=== PATIENT | female | born 1995 | race Caucasian/White ===

== ENCOUNTER 2023-08-15 01:04 | Emergency (ER) | payer BC, SELFPAY ==
--- NOTE | 2023-08-15 01:08 | XRR_ITS ---
PROCEDURE INFORMATION: Exam: XR Chest Exam date and time: 08/15/2023 1:11 AM Age: 27 years old Clinical indication: Chest pressure; Patient HX: C/O chest pain; Additional info: Cp TECHNIQUE: Imaging protocol: Radiologic exam of the chest. Views: 1 view. COMPARISON: No relevant prior studies available. FINDINGS: Lungs: Unremarkable. No consolidation. Pleural spaces: Unremarkable. No pleural effusion. No pneumothorax. Heart/Mediastinum: Unremarkable. No cardiomegaly. Bones/joints: Unremarkable. XR/XR chest 1V portable [id number] IMPRESSION: No acute findings.
--- NOTE | 2023-08-15 01:09 | ECG_ITS ---
[facility] Test Date: 2023-08-15 Pat Name: Sean Crenshaw Department: Room: Gender: Female Renderer: : 1995 Requested By: Marcelino Azul Order Number: [id number] Rafael MD: Giuseppe Hernandez M.D. Measurements Intervals [place] Rate: 95 P: 56 DC: 153 QRS: 75 QRSD: 90 T: -34 QT: 378 QTc: 477 Interpretive Statements SINUS RHYTHM MODERATE T-WAVE ABNORMALITY, CONSIDER INFERIOR ISCHEMIA [-0.1+ mV T-WAVE IN II/aVF] No previous ECG available for comparison Electronically Signed On 08-15-2023 9:10:20 STUNNER ANIMAL by Giuspepe Hernandez M.D. [id number]
[2023-08-15 01:20] VITALS: BP 135/78; PULSE 100; RESP 20; TEMP 36.1; O2SAT 100
[2023-08-15 01:27] LABS: Basophils % 0.2 %; Eosinophils # 0.1 10^3/uL (0.0-0.8); Eosinophils % 0.5 %; Lymphocytes # 0.8 10^3/uL (0.8-4.8); Lymphocytes % 7.7 %; Mean Corpuscular HGB Conc 31.6 g/dL (30-55); Mean Corpuscular Hemoglobin 24.6 pg (27-33); Mean Corpuscular Volume 77.9 fl (85-98); Mean Platelet Volume 10.9 fL (7.4-10.4); Monocytes # 0.8 10^3/uL (0.2-0.9); Neutrophils # 9.04 10^3/uL (1.8-7.7); Neutrophils % 84.1 %; Nucleated Red Blood Cells % 0 %; Platelet Count 223 10^3/cmm (157-399); Red Blood Count 4.75 10^6/uL (3.85-5.65); Red Cell Distribution Width 15.8 % (12.1-15.1); White Blood Count 10.74 10^3/uL (3.29-11.43)
[2023-08-15 01:44] LABS: HCG, Serum Qual Negative (Negative)
[2023-08-15 01:45] LABS: Troponin(5th) Baseline < 6 ng/L (0-10)
[2023-08-15 01:58] LABS: Alanine Aminotransferase 47 U/L (0-33); Albumin Level 4.3 g/dL (3.5-5.2); Alkaline Phosphatase 84 U/L (35-105); Aspartate Amino Transferase 82 U/L (0-32); Blood Urea Nitrogen 13 mg/dL (6-20); Calcium 8.7 mg/dL (8.5-10.5); Carbon Dioxide 17 mmol/L (22-29); Chloride 105 mmol/L (98-107); Creatinine Clr Calc Pharmacy 109.7115; Globulin 2.3 g/dL (1.3-4.6); Glomerular Filtration Rate 87.4 mL/min (90-130); Glucose 165 mg/dL (65-115); Lipase 24 U/L (13-60); NT Pro B Type Natriuretic Pept < 36 pg/mL (0-125); Osmolality Calculated 286 mOsm/kg (285-295); Sodium 136 mmol/L (136-145); Total Bilirubin 0.6 mg/dL (0.15-1.2); Total Protein 6.6 g/dL (6.6-8.7)
[2023-08-15 02:00] VITALS: BP 113/73; PULSE 95; RESP 20; O2SAT 100
[2023-08-15] MEDS: potassium chloride oral liq 20 mEq/15 mL UDC 40 MEQ PO (02:16)
[2023-08-15] MEDS: sodium chloride 0.9% 1,000 ML 999 ML IV ×2 (02:18→03:20)
--- NOTE | 2023-08-15 02:31 | CTR_ITS ---
PROCEDURE INFORMATION: Exam: CT Abdomen And Pelvis With Contrast Exam date and time: 08/15/2023 2:50 AM Age: 27 years old Clinical indication: Nausea and vomiting; Abdominal pain; Prior surgery; Surgery date: 6+ months; Surgery type: Gb. Iud; Patient HX: Epigastric pain with n/v; Additional info: Epigastric pain, vomiting TECHNIQUE: Imaging protocol: Computed tomography of the abdomen and pelvis with contrast. Radiation optimization: All CT scans at this facility use at least one of these dose optimization techniques: automated exposure control; mA and/or kV adjustment per patient size (includes targeted exams where dose is matched to clinical indication); or iterative reconstruction. Contrast material: OMNI 350; Contrast volume: 100 ml; Contrast route: INTRAVENOUS (IV); REPORTING DATA: Count of CT and Cardiac NM exams in prior 12 months: This patient has received 0 known CTs and 0 known cardiac nuclear medicine studies in the 12 months prior to the current study. COMPARISON: CR (CHEST, ) 08/15/2023 1:11 AM RADIATION DOSE METRICS: Total DLP (mGy-cm): 374.26 FINDINGS: Liver: Normal. No mass. Gallbladder and bile ducts: Surgical clips are noted in the gallbladder fossa compatible with a prior cholecystectomy. Pancreas: Normal. No ductal dilation. Spleen: Normal. No splenomegaly. Adrenal glands: Normal. No mass. Kidneys and ureters: The kidneys enhance symmetrically and there is no hydronephrosis. Stomach and bowel: There is moderate stool noted in the proximal half of the colon. Scattered diverticular disease is noted. Appendix: No evidence of appendicitis. Intraperitoneal space: Unremarkable. No free air. No significant fluid collection. Vasculature: Unremarkable. No abdominal aortic aneurysm. Lymph nodes: Unremarkable. No enlarged lymph nodes. Urinary bladder: Unremarkable as visualized. Reproductive: An intrauterine device is present. Bones/joints: Unremarkable. No acute fracture. Soft tissues: Unremarkable. CT/CT abdomen pelvis w con* [id number] IMPRESSION: Right-sided constipation. Diverticulosis.
[2023-08-15] MEDS: iohexol 350 mg/mL 500 mL Btl (per mL) IV (02:51)
--- NOTE | 2023-08-15 02:55 | ED_ITS ---
HPI - Abdominal Pain 2 General: Chief Complaint: Abdominal Pain Stated Complaint: Chest pain Time Seen by Provider: 08/15/23 01:07 History of Present Illness: 27-year-old female presenting with epigastric pain radiating to her back. She notes that she has a history of IBS, and has had diarrhea today. She ended up taking Imodium, due to the severity of the diarrhea. The Imodium has not seem to help much. She began to get intense epigastric/lower chest pain late last night, that radiated into her back. She has vomited a couple of times. No blood. No blood in the stool. No fever. In the ambulance, she received some pain medication which seemed to help to some degree. Associated Symptoms: Reports diarrhea, nausea and vomiting; Denies chills, fever(s) and hematochezia Review of Systems 2 Const: Denies: fever(s), chills or body aches Eyes: Denies: change in vision Card: Reports: chest pain; Denies: palpitations Resp: Denies: dyspnea, productive cough, non-productive cough or wheezing GI: Reports: abdominal pain, nausea, vomiting and diarrhea; Denies: hematochezia : Denies: difficulty voiding Skin/Breast: Denies: rash Neuro: Denies: headache(s), weakness in extremities or confusion PFSH ED 2 PFSH: Medical History Psychiatric care Physical Exam 2 Const: COMMON NORMALS: no acute distress GENERAL APPEARANCE: cooperative; not ill appearing and not frail appearing HENMT: COMMON NORMALS: normocephalic, atraumatic and Normal external nose present HEAD & SCALP: normocephalic and atraumatic FACE & SINUS: normal facial exam and face symmetric NOSE: Normal external nose present Eye: COMMON NORMALS: Equal, round and reactive pupils present and EOMs intact bilaterally PUPIL: Yes Equal, round and reactive pupils present Neck/C-Spine: GENERAL: Yes trachea midline Chest: CHEST: Yes Symmetrical chest wall rise Resp: COMMON NORMALS: normal respiratory effort, No retractions, No use of accessory muscles and clear to auscultation bilaterally AUSCULTATION: clear to auscultation bilaterally Cardio: COMMON NORMALS: regular rate and regular rhythm RATE: regular rate RHYTHM: regular rhythm GI: COMMON NORMALS: Normal to inspection, nondistended, normoactive bowel sounds present Extremity: COMMON NORMALS: no pedal edema Neuro: CONNER COMA SCALE: document GCS findings Conner coma scale eye opening: Spontaneous [place] coma scale verbal response: Orientated Conner coma scale motor response: Obey commands Conner coma scale total score: 15 S ENSORY EXAM: Yes extremities (intact) Psych: COMMON NORMALS: speech normal SPEECH: Yes normal speech Skin: COMMON NORMALS: no rashes or lesions noted GENERAL SKIN EXAM: no rashes or lesions noted Course 2 Vital Signs: Vital signs: Vital Signs Temperature 97 F L 08/15/23 01:20 Pulse Rate 105 H 08/15/23 03:48 Respiratory Rate 18 08/15/23 03:48 Blood Pressure 113/73 08/15/23 03:48 Pulse Oximetry 100 08/15/23 03:48 Oxygen Delivery Me thod Room Air 08/15/23 01:20 MDM - Abdominal Pain Medical Decision Making EKG reveals a sinus rhythm with normal axis and intervals. Rate is 95. There are no acute ST wave changes. Chest x-ray is negative. Vitals are stable. Her potassium is 3.0. Bicarbonate is 17. Blood sugar is 165. She is receiving a 2 L bolus. She has received oral potassium repletion. Lipase is normal. Liver enzymes are mildly elevated, but she has a history of Johnson. D-dimer is 0.3. CT of the abdomen pelvis is pending. CT is nonacute. Differential includes small ulcer, reflux and/or esophageal spasm, hypokalemia as a cause of chest discomfort, anxiety. Patient has a history of reflux. She has been off her omeprazole. Will represcribe along with Carafate. Outpatient follow-up. Return for worsening symptoms despite treatment. She will need a repeat potassium. Lab Data 08/15/23 01:22 08/15/23 01:22 Labs/Radiology: Radiology Impressions Chest X-Ray 08/15/23 01:08 IMPRESSION: No acute findings. Abdomen/Pelvis CT 08/15/23 02:31 IMPRESSION: Right-sided constipation. Diverticulosis. Laboratory Results WBC 10.74 10^3/uL (3.29-11.43) 08/15/23 01:22 RBC 4.75 10^6/uL (3.85-5.65) 08/15/23 01:22 Hgb 11.70 g/dL (11.27-16.99) 08/15/23 01:22 Hct 37.0 % (36-47) 08/15/23 01:22 MCV 77.9 fl (85-98) L 08/15/23 01:22 MCH 24.6 pg (27-33) L 08/15/23 01:22 MCHC 31.6 g/dL (30-55) 08/15/23 01:22 RDW 15.8 % (12.1-15.1) H 08/15/23 01:22 Plt Count 223 10^3/cmm (157-399) 08/15/23 01:22 MPV 10.9 fL (7.4-10.4) H 08/15/23 01:22 Neut % (Auto) 84.1 % 08/15/23 01:22 Lymph % (Auto) 7.7 % 08/15/23 01:22 [place] % (Auto) 7.0 % 08/15/23 01:22 Eos % (Auto) 0.5 % 08/15/23 01:22 Baso % (Auto) 0.2 % 08/15/23 01:22 Neut # (Auto) 9.04 10^3/uL (1.8-7.7) H 08/15/23 01:22 Lymph # (Auto) 0.8 10^3/uL (0.8-4.8) 08/15/23 01:22 [place] # (Auto) 0.8 10^3/uL (0.2-0.9) 08/15/23 01:22 Eos # (Auto) 0.1 10^3/uL (0.0-0.8) 08/15/23 01:22 Baso # (Auto) 0.0 10^3/uL (0.0-0.1) 08/15/23 01:22 Nucleated RBC % (auto) 0 % 08/15/23 01:22 Nucleated RBCs # 0.0 /100WBC 08/15/23 01:22 D-Dimer 0.30 ug/mLFEU (0-0.59) 08/15/23 01:22 Sodium 136 mmol/L (136-145) 08/15/23 01:22 Potassium 3.0 mmol/L (3.5-5.1) L 08/15/23 01:22 Chloride 105 mmol/L (98-107) 08/15/23 01:22 Carbon Dioxide 17 mmol/L (22-29) L 08/15/23 01:22 Anion Gap 17.0 (5-19) 08/15/23 01:22 BUN 13 mg/dL (6-20) 08/15/23 01:22 Creatinine 0.8 mg/dL (0.5-0.9) 08/15/23 01:22 GFR Calculation 87.4 mL/min (90-130) L 08/15/23 01:22 Glucose 165 mg/dL (65-115) H 08/15/23 01:22 Calculated Osmolality 286 mOsm/kg (285-295) 08/15/23 01:22 Calcium 8.7 mg/dL (8.5-10.5) 08/15/23 01:22 Total Bilirubin 0.6 mg/dL (0.15-1.2) 08/15/23 01:22 AST 82 U/L (0-32) H 08/15/23 01:22 ALT 47 U/L (0-33) H 08/15/23 01:22 Alkaline Phosphatase 84 U/L (35-105) 08/15/23 01:22 Troponin T Baseline < 6 ng/L (0-10) 08/15/23 01:22 NT-Pro-B Natriuret Pep < 36 pg/mL (0-125) 08/15/23 01:22 Total Protein 6.6 g/dL (6.6-8.7) 08/15/23 01:22 Albumin 4.3 g/dL (3.5-5.2) 08/15/23 01:22 Globulin 2.3 g/dL (1.3-4.6) 08/15/23 01:22 Lipase 24 U/L (13-60) 08/15/23 01:22 HCG, Qual Negative (Negative) 08/15/23 01:22 Urine Color Dark yellow (Yellow) 08/15/23 03:10 Urine Appearance Hazy (CLEAR) A 08/15/23 03:10 Urine pH 5 (5-7) 08/15/23 03:10 Ur Specific [place] 1.015 (1.005-1.030) 08/15/23 03:10 Urine Protein Neg (Negative) 08/15/23 03:10 Urine Glucose (UA) 1+ (Normal) H 08/15/23 03:10 Urine Ketones 2+ (Negative) H 08/15/23 03:10 Urine Blood 2+ (Negative) H 08/15/23 03:10 Urine Nitrate Negative (Negative) 08/15/23 03:10 Urine Bilirubin Neg (Negative) 08/15/23 03:10 Urine Urobilinogen Norm mg/dL (Negative) 08/15/23 03:10 Ur Leukocyte Esterase Negative (Negative) 08/15/23 03:10 Urine RBC 5-10 /hpf (0-2) H 08/15/23 03:10 Urine WBC 5-10 /hpf (0-5) H 08/15/23 03:10 Ur Squamous Epith Cells 15-25 /hpf (0-5) H 08/15/23 03:10 Amorphous Sediment Not Reportable 08/15/23 03:10 Urine Bacteria 2+ /hpf (NONE) H 08/15/23 03:10 Urine Mucus 1+ /hpf 08/15/23 03:10 All radiology interpretation(s) finalized by discharge Discharge Plan Discharge Patient Disposition: Home Clinical Impression: Epigastric abdominal pain, Hypokalemia, Acute dehydration Condition: Stable Prescriptions: New sucralfate 1 gram tablet 1 g PO TID 28 Days Qty: 84 0RF Changed omeprazole 40 mg capsule,delayed release(DR/EC) 40 mg PO BID Qty: 60 0RF No Action Linzess 290 mcg capsule 290 mcg PO DAILY duloxetine 60 mg capsule,delayed release(DR/EC) 60 mg PO BID Discharge Orders: Discharge ED (Routine); Ordered 08/15/23 Ordered By: Marcelino Vang Referrals: Ryan Dominguez MD [Family Provider] - Meri Regalado NP [Primary Care Provider] - 4-7 days Patient Instructions: Hypokalemia (ED), Abdominal Pain (ED), Opioid Safety, Pain Management Activity Restrictions/Additional Instructions: Make sure you stay hydrated the next 48 hours. You should have your potassium checked next week to make sure it is staying up appropriately. Medication as directed. Return for worsening symptoms despite treatment, other new or concerning symptoms. Follow-up with your doctor next week. Coding Level of Care Code ED Developmental Psychologist for Maliag Wil[place]
[2023-08-15 03:19] VITALS: BP 117/77; PULSE 100; RESP 19; O2SAT 100
[2023-08-15 03:24] LABS: Add Urine Microscopic? YES; Bacteria Urine 2+ /hpf; Bilirubin Urine Neg (Negative); Blood Urine 2+ (Negative); Glucose Urine UA 1+ (Normal); Ketones Urine 2+ (Negative); Leukocyte Esterase Urine Negative (Negative); Nitrate Urine Negative (Negative); Protein Urine Neg (Negative); Specific Gravity, Urine 1.015 (1.005-1.030); Squamous Epithelial Cell Urine 15-25 /hpf (0-5); Urine Appearance Hazy (CLEAR); Urine Color Dark yellow (Yellow); Urobilinogen Urine Norm (Negative); pH Urine 5 (5-7)
[2023-08-15 03:25] LABS: Mucus Urine 1+ /hpf
[2023-08-15 03:48] VITALS: BP 113/73; PULSE 105; RESP 18; O2SAT 100
[2023-08-15] MEDS: lidocaine 2% viscous 15 ML, aluminum-mag hydrox-simethicon 30 ML, sucralfate oral liq 1 GM PO (03:48)
[2023-08-15] MEDS: ondansetron 2 mg/ML SDV 2 mL 4 MG IVP (04:05)
[2023-08-15] MEDS: pantoprazole DR 40 mg Tablet 80 MG PO (04:06)
[2023-08-15] MEDS: sucralfate 1 gm Tablet 2 GM PO (04:06)
== END 2023-08-15 04:11 | disposition home or self-care (01) ==
PROVIDERS: Emergency Provider Emergency Medicine; PCP Nurse Practitioner Family
DX: K59.00 Constipation, unspecified (principal); K57.90 Diverticulosis of intestine, part unspecified, without perforation or abscess without bleeding; E87.6 Hypokalemia; E86.0 Dehydration
CPT/HCPCS: 36415; 71045; 74177; 80053; 81001; 83690; 83880; 84484; 84703; 85025; 85378; 93005; 96361; 96374; 99285; J2405; J7030; Q9967